=== PATIENT | male | born 1950 | race Hispanic/Latino ===

== ENCOUNTER 2018-01-10 06:46 | Day surgery (SDC) | payer BC ==
[2017-12-29 11:48] VITALS: BMI 26.7
[2018-01-10 07:46] LABS: BLOOD UREA NITROGEN 18 mg/dL (7-21); GFR AFRICAN-AMERICAN > 60; GFR NON-AFRICAN AMERICAN > 60
[2018-01-10 07:52] VITALS: O2SAT 97
[2018-01-10] MEDS ORDERED: Lidocaine 2% Inj (20ml) ONE (08:45)
[2018-01-10] MEDS ORDERED: HEPARIN SODIUM/NS 2,000 ML IV ONE (08:45)
[2018-01-10] MEDS ORDERED: Midazolam 2 MG/2 ML VIAL ONE (08:56)
[2018-01-10] MEDS ORDERED: Iohexol 350mgl/ml 50 ML ONE (09:16)
[2018-01-10] MEDS ORDERED: Iohexol 350 MG/100 ML VIAL ONE (09:16)
[2018-01-10] MEDS ORDERED: Nitroglycerin 50mg in D5W 50 MG/250 ML BOTTLE IV ONE (09:25)
[2018-01-10] MEDS ORDERED: Sodium Chloride 0.9% 1,000 ML IV SCH (09:45)
--- NOTE | 2018-01-10 15:12 | CARDCATH ---
PROCEDURE DATE: 01/10/2018 PROCEDURES 1. Selective left and right coronary angiography. 2. Percutaneous coronary intervention of left anterior descending. 3. Right femoral arteriography. 4. Angio-Seal deployment. HISTORY: This is a 67-year-old man with recent chest pain and abnormal preoperative stress test, referred for cardiac catheterization. INDICATION: Abnormal stress test. FINDINGS HEMODYNAMICS: The aortic pressure was 100/60 with left ventricular pressure of 100/14. CORONARY ANATOMY 1. The left mainstem was long and normal. 2. Left anterior descending artery had a severe 90% stenosis after takeoff of the first diagonal branch. This was followed by an area of moderate diffuse disease and an 80% lesion in the early mid-segment of the vessel. Mild diffuse irregularities were noted distally. The first diagonal branch had a 50% proximal stenosis and the second diagonal branch was fairly small with 70% stenosis as well. 3. Left circumflex artery was fairly small with no significant disease. 4. The right coronary artery was dominant and normal. LEFT VENTRICULOGRAPHY: A hand injection was performed in the left ventricle revealing normal wall motion and ejection fraction of 60%. There was no aortic valve gradient noted on catheter pullback. CORONARY INTERVENTION: A 5000 units of intravenous heparin was administered and ACT was 350 seconds during the procedure. A 3.5 EBU guide catheter was utilized and lesions in the LAD successfully crossed with the use of a Hunter wire. Following this, initial inflations were performed with a 2.5 x 12 mm for 15 seconds in both sides. Following this, a 3.0 x 30 mm bare-metal Integrity sent was advanced and deployed to a 14 atmospheres. There was 0% residual stenosis following the intervention. A HELEN grade 3 flow was present before and after the procedure. Flow into the first diagonal branch was unchanged and the second diagonal branch had HELEN grade 2 flow noted. Due to the vessel size, this was not treated. RIGHT FEMORAL ARTERIOGRAPHY: A right femoral arteriogram showed no evidence of significant disease with appropriate level for arterial puncture. The puncture site was then closed with deployment of an Angio-Seal device. CONCLUSIONS 1. Severe left anterior descending disease, successfully treated with a bare-metal stent placement as above. 2. Normal left ventricular systolic function. RECOMMENDATIONS: Given the above findings, aggressive risk factor control is advised. Aspirin and Plavix therapy will be administered for 30 days and the podiatric surgery will be delayed until that time. Initiation of statin therapy and beta- john therapy is advised. Jorge A Acosta MD cc: Teo Marcus MD MTDD
[2018-01-10 17:47] VITALS: BP 119/65; PULSE 75; RESP 18; TEMP 98.1
--- NOTE | 2018-01-11 10:54 | CARD ---
APPROVED REPORT EKG Measurement Heart [id number] <Conclusion> Normal sinus rhythm with sinus arrhythmia Left anterior fascicular block PRWP Cannot rule out Anterior infarct, age undetermined No change
== END 2018-01-10 19:30 | disposition home or self-care (01) ==
LOC: CATH 06:46 → 2RNO 10:09 → CATH 19:30
PROVIDERS: ATTEND Internal Medicine Cardiovascular Disease
DX: I25.10 Atherosclerotic heart disease of native coronary artery without angina pectoris (principal); R94.39 Abnormal result of other cardiovascular function study
CPT/HCPCS: 36415; 80048; 85175; 86850; 86900; 92928; 93005; 93458; 99152; 99153; C1725; C1769 ×2; C1887; C2629; J1644 ×2; J2250; J3010; J7040 ×2; J7120; Q9967 ×3